=== PATIENT | male | born 1945 | race Caucasian/White ===

== ENCOUNTER → 2018-12-28 | Outpatient (CLI) | payer OTHER | LOC: ULTRA 07:42 | DX: R10.11 Right upper quadrant pain (principal) ==

== ENCOUNTER → 2019-02-15 | Outpatient (CLI) | payer OTHER ==
[~2019-02-15] VITALS: Ht 182.9 cm; Wt 89.4 kg
[~2019-02-15] MED LIST: ASPIR 8181 MG PO; FISH OIL 1,001000 M2 PO; GARLIC200 MG PO; GLUCOPHAGE XR500 MG PO; GLUCOSAMINE CH1 EAC2 PO; JARDIANCE25 MG PO; PRAVACHOL40 MG PO; QUINAPRIL HCL20 MG PO; SUPER B MAXI C0.4 MG PO
--- NOTE | 2019-02-18 15:05 | PATH ---
[facility] [address] [place] [address] PATHOLOGY RPT PROCEDURE Name: KURT HARLEY Room #: REG [facility] Kaitlynn.Lam.#: [id number] ������������������ Admission: 02/15/19 ������������������ Date of : 45 Discharge: Report #: [id number] Path Case #: [id number] [facility] Accession Number: [id number] . 01 Material submitted: . PART A: BX OF MULTIPLE ULCERS AT CECUM PART B: BX RECTAL POLYP . 01 Clinical history: . Pre-OP DX: HX: Polyps Post-OP DX: Cecal ulcers, rectal polyp . 02 Diagnosis: A. Large intestinal mucosa, multiple ulcers at cecum, endoscopic biopsy: - Two fragments showing changes compatible with ischemic changes (please see comment). - Negative for acute / active cryptitis. - Negative for microscopic colitis. - Negative for dysplasia or malignancy. . B. Polyp, rectal polyp, endoscopic biopsy: - Hyperplastic polyp. - Negative for dysplasia. . (IUV:mml; 02/18/2019) QLM/02/18/2019 . 02 Comment: Examination of the "multiple ulcers at cecum" shows fibrotic lamina propria, regenerative epithelial atypia as well as crypt ghosts, changes compatible with ischemic colitis. The remainder of fragments sampled show nonspecific regenerative changes within the epithelium and crypts; however, active cryptitis, architectural abnormalities as well as increased lamina propria cellularity are not identified. Lamina propria hemorrhage is present within almost all fragments sampled. The differential diagnosis for ischemic colitis includes pseudomembranous colitis. Parasitic organisms or viral inclusions are not identified within any of the fragments sampled. There are no granulomata as well. Clinical correlation is required. . (IUV:mml; 02/18/2019) . 02 Electronically signed: . Mari Castillo MD, Pathologist NPI- [id number] . 01 Gross description: . [address] [address] PATHOLOGY RPT PROCEDURE Name: KURT HARLEY F Room #: REG [facility]#: [id number] ������������������ Admission: 02/15/19 ������������������ Date of : 45 Discharge: Report #: [id number] Path Case #: [id number] A. Received in formalin labeled "Kurt Harley, BX multiple ulcerations at cecum," are multiple segments of packer soft tissue measuring 1.8 x 0.3 x 0.1 cm in aggregate dimensions. The specimen is filtered and entirely submitted in cassette A1. . B. Received in formalin labeled "Kurt Harley, BX rectal polyp," is a single segment of packer soft tissue measuring 0.4 cm in maximum dimension. The specimen is entirely submitted in cassette B1. (TSD; 02/15/2019) TOB/TOB . 02 Pathologist provided ICD-10: K63.9, K62.1 . 02 CPT . 662546, 254887 Specimen Comment: A courtesy copy of this report has been sent to Specimen Comment: [phone], . Specimen Comment: Report sent to / DR CUNNINGHAM Specimen Comment: A duplicate report has been generated due to demographic updates. Performed at: [address], [place] [id number] MD Mario Guzman MD Phone: [phone] Performed at: [address] [id number] MD Mari Castillo MD Phone: [phone]
--- NOTE | 2019-02-18 17:56 | P ---
[facility] [place] [address] [place] [address] PROCEDURE REPORT Name: KURT UL Room #: REG [facility]#: [id number] Admission: 02/15/19 ������������������ Attend Phys: Gustavo Christiansen MD Discharge: ������������������ Date of : 45 Report #: [id number] THIS REPORT FOR: //name// CC: Gustavo Chairez BRIEF HISTORY: The patient is a 73-year-old male with history of colon polyps for high risk screening. PREOPERATIVE DIAGNOSIS: High risk screening colonoscopy. POSTOPERATIVE DIAGNOSES: 1. Ulcers x 3 cecum with questionable extrinsic mass effect. 2. Admitted to have rectal polyp. MEDICATIONS: Deep sedation with propofol per anesthesia. SPECIMENS: 1. Biopsies of cecal ulcerations. 2. Rectal polyp. ESTIMATED BLOOD LOSS: 3 mL. PROCEDURE: Colonoscopy to cecum and terminal ileum with biopsy. FINDINGS: Prior to propofol sedation, procedure of colonoscopy discussed with the patient as well as potential risks and its complications. He indicates he understands and desires to proceed. DESCRIPTION OF PROCEDURE: With the patient in left lateral decubitus position, digital examination was completed, which revealed no abnormalities. Subsequently, the Olympus video colonoscope was introduced in the rectum, advanced under direct vision to the cecum. Done with minimal difficulty. The cecum was identified by the ileocecal valve and the appendiceal orifice. I was able to visualize the distal segment of the terminal ileum. I was able to examine about 10-15 cm of terminal ileum, which was completely normal without inflammatory neoplastic changes. The scope was drawn back in the cecum. He was noted to have 3 ulcers in the cecum. However, they were unusual areas of ulceration with bluish and blackish areas. They almost appeared to be ischemic. There was also noted to be some questionable mass effect extrinsic to the cecum in the region of the ulcerations. Multiple biopsies were obtained. Active bleeding was not identified. The ulcerations and inflammatory changes were limited to only the cecum. As we withdrew the scope to the remainder of his colon, it was within normal limits, normal vascular pattern, normal light reflex. No inflammatory changes were seen elsewhere in the colon. In the rectum, upon retroflexion, a diminutive polyp was seen. With narrow band [facility] [address] [place] [address] PROCEDURE REPORT Name: UKRT LU Room #: [facility].#: [id number] Admission: 02/15/19 ������������������ Attend Phys: Gustavo Christiansen MD Discharge: ������������������ Date of : 45 Report #: [id number] imaging, it had an adenomatous appearance and was removed with biopsy forceps. No other abnormalities were seen. Scope was withdrawn. The patient tolerated the procedure well. CONDITION OF THE PATIENT UPON DISCHARGE: Following procedure, the patient drowsy, aroused, conversant and will be discharged home when fully ambulatory. INSTRUCTIONS TO THE PATIENT AND FAMILY AT THE TIME OF DISCHARGE: Cecal findings as noted above. Unusual appearance with ulcerations. The ulcers appear atypical. There is a questionable mass effect. Therefore we will obtain a CT scan of the abdomen and pelvis for further evaluation. We will follow up on biopsies and make further recommendations. It is noted the patient reported prior to the procedure that he was completely asymptomatic. We will discuss further with the patient. Last colonoscopy 10 years ago. Withdrawal time from the cecum 11 minutes 30 seconds. ��������������������������������������������� <ELECTRONICALLY SIGNED> ���������������������������������������� By: Gustavo Christiansen MD ��������������������������������������������� 02/18/19 1756 [id number] 1237 Gustavo Christiansen MD /nt
== END | disposition home or self-care (01) ==
LOC: GI 06:23
DX: Z12.11 Encounter for screening for malignant neoplasm of colon (principal); Z86.010 Personal history of colon polyps; K62.1 Rectal polyp; K63.89 Other specified diseases of intestine; K63.3 Ulcer of intestine; I10 Essential (primary) hypertension; E11.9 Type 2 diabetes mellitus without complications; E78.5 Hyperlipidemia, unspecified; Z87.442 Personal history of urinary calculi; Z98.890 Other specified postprocedural states; Z79.899 Other long term (current) drug therapy
CPT/HCPCS: 62110; 62900

== ENCOUNTER → 2020-02-04 | Outpatient (CLI) | payer OTHER | LOC: SJCVC 13:38 | DX: I10 Essential (primary) hypertension (principal); I25.10 Atherosclerotic heart disease of native coronary artery without angina pectoris; E78.5 Hyperlipidemia, unspecified; E11.9 Type 2 diabetes mellitus without complications; Z79.82 Long term (current) use of aspirin; Z79.899 Other long term (current) drug therapy ==

== ENCOUNTER → 2020-08-05 | Outpatient (CLI) | payer OTHER | LOC: SJCVC 09:20 | PROVIDERS: ATTEND Internal Medicine | DX: I44.0 Atrioventricular block, first degree (principal); I25.10 Atherosclerotic heart disease of native coronary artery without angina pectoris; E78.00 Pure hypercholesterolemia, unspecified; I10 Essential (primary) hypertension; E78.5 Hyperlipidemia, unspecified; E11.9 Type 2 diabetes mellitus without complications; Z79.899 Other long term (current) drug therapy ==

== ENCOUNTER → 2021-01-05 | Outpatient (CLI) | payer OTHER | LOC: SJCVC 10:40 | PROVIDERS: ATTEND Internal Medicine | DX: R94.31 Abnormal electrocardiogram [ECG] [EKG] (principal); I25.10 Atherosclerotic heart disease of native coronary artery without angina pectoris; E78.5 Hyperlipidemia, unspecified; I10 Essential (primary) hypertension; E11.9 Type 2 diabetes mellitus without complications ==

== ENCOUNTER → 2021-05-19 | Outpatient (CLI) | payer OTHER | LOC: ULTRA 07:50 | PROVIDERS: ATTEND Family Medicine | DX: K76.0 Fatty (change of) liver, not elsewhere classified (principal); N20.0 Calculus of kidney ==

== ENCOUNTER → 2021-07-05 | Outpatient (CLI) | payer OTHER | LOC: SJCVCIMAG 10:11 | PROVIDERS: ATTEND Internal Medicine | DX: I35.1 Nonrheumatic aortic (valve) insufficiency (principal); R00.0 Tachycardia, unspecified; R06.00 Dyspnea, unspecified; R53.83 Other fatigue; I25.10 Atherosclerotic heart disease of native coronary artery without angina pectoris; I10 Essential (primary) hypertension; E78.00 Pure hypercholesterolemia, unspecified; E78.5 Hyperlipidemia, unspecified; E11.9 Type 2 diabetes mellitus without complications; F10.10 Alcohol abuse, uncomplicated; Z98.890 Other specified postprocedural states; Z79.82 Long term (current) use of aspirin; Z79.84 Long term (current) use of oral hypoglycemic drugs; Z79.899 Other long term (current) drug therapy; Z86.16 Personal history of COVID-19 ==